=== PATIENT | male | born 1990 | race American Indian/Alaskan Native ===

== ENCOUNTER 2017-06-24 21:38 | Emergency (ER) | payer MEDICAID ==
[2017-06-24 21:43] VITALS: BP 160/91
[2017-06-24 22:11] LABS: Bilirubin,Urine NEG (Negative); Blood,Urine SM (Negative); Ketones,Urine TR mg/dL (Negative); Leukocyte Esterase,Urine SM (Negative); Mucus,Urine FEW /HPF; Nitrite,Urine NEG (Negative); Protein,Urine <15 mg/dL mg/dL (Negative); Urobilinogen,Urine < 2.0 mg/dL (<2.0)
[2017-06-24] MEDS ORDERED: XYLOCAINE 1% MPF 5 mL INFILTRATI ONE (22:15)
[2017-06-24] MEDS ORDERED: ZITHROMAX PO ONE (22:15)
[2017-06-24] MEDS ORDERED: ROCEPHIN IM ONE (22:15)
--- NOTE | 2017-06-24 22:20 | Emergency Department Report ---
ED Male HPI - General Chief complaint: Urogenital-Male Stated complaint: PAIN WHEN URINATING Time Seen by Provider: 06/24/17 22:10 Source: patient Mode of arrival: Ambulatory Limitations: No Limitations - History of Present Illness Initial comments: dysuria x 2 days, no penile discharge no rash no lesion no open sores last contact 2 days Onset/Timin -: days(s) Location: penis Radiation: none Severity: moderate Severity scale (0 -10): 4 Quality: burning Consistency: intermittent Improves with: none Worsens with: urination new sexual partner (std exposure partner pos for Chlamydia ) denies: discharge, swelling, mass, rash, urinary retention, blood in urine, dysuria, fever, nausea/vomiting - Related Data Previous Rx's Medication Instructions Recorded Last Taken Type Doxycycline [Vibramycin CAP] 100 mg PO Q12HR #20 capsule 06/24/17 Unknown Rx Allergies Allergy/AdvReac Type Severity Reaction Status Date / Time No Known Allergies Allergy Unverified 06/24/17 21:43 ED Review of Systems ROS: Stated complaint: PAIN WHEN URINATING Other details as noted in HPI Constitutional: denies: chills, fever Eyes: denies: eye pain, eye discharge, vision change ENT: denies: ear pain, throat pain Respiratory: denies: cough, shortness of breath, wheezing Cardiovascular: denies: chest pain, palpitations Endocrine: no symptoms reported Gastrointestinal: denies: abdominal pain, nausea, diarrhea Genitourinary: urgency, dysuria. denies: hematuria, discharge, testicular pain , testicular mass Musculoskeletal: denies: back pain, joint swelling, arthralgia Skin: denies: rash, lesions Neurological: denies: headache, weakness, paresthesias Psychiatric: denies: anxiety, depression Hematological/Lymphatic: denies: easy bleeding, easy bruising ED Past Medical Hx - Past Medical History Previous Medical History?: No - Surgical History Past Surgical History?: No - Social History Smoking Status: Never Smoker Substance Use Type: None - Medications Home Medications: Home Medications Medication Instructions Recorded Confirmed Last Taken Type Doxycycline [Vibramycin CAP] 100 mg PO Q12HR #20 capsule 06/24/17 Unknown Rx ED Physical Exam - General Limitations: No Limitations General appearance: alert, in no apparent distress - Head Head exam: Present: atraumatic, normocephalic - Eye Eye exam: Present: normal appearance - ENT ENT exam: Present: mucous membranes moist - Neck Neck exam: Present: normal inspection - Respiratory Respiratory exam: Present: normal lung sounds bilaterally. Absent: respiratory distress - Cardiovascular Cardiovascular Exam: Present: regular rate, normal rhythm. Absent: systolic murmur, diastolic murmur, rubs, gallop - GI/Abdominal GI/Abdominal exam: Present: soft, normal bowel sounds - Rectal Rectal exam: Present: deferred - exam: Present: normal inspection, circumcision. Absent: testicular tenderness, urethral discharge, scrotal swelling, vertical testicular lie External exam: Present: normal external exam. Absent: erythema, swelling, lesions, lacerations, ecchymosis, bleeding - Extremities Exam Extremities exam: Present: normal inspection - Back Exam Back exam: Present: normal inspection - Neurological Exam Neurological exam: Present: alert, oriented X3 - Psychiatric Psychiatric exam: Present: normal affect, normal mood - Skin Skin exam: Present: warm, dry, intact, normal color. Absent: rash ED Course Vital Signs 06/24/17 21:40 Temperature 99.2 F Pulse Rate 81 Blood Pressure 160/91 O2 Sat by Pulse 99 Oximetry ED Medical Decision Making - Medical Decision Making pt presents for std exposure as partner reported pos for chlamyid a , ua noted for wbc, plan: treat for std , rocephin, azithromycin dc with doxycycline pt will follow up with health department for HIV screening and follow up pt vebalized agreement and understanding with discharge plan. Critical care attestation.: If time is entered above; I have spent that time in minutes in the direct care of this critically ill patient, excluding procedure time. ED Disposition Clinical Impression: STD (sexually transmitted disease) Disposition: DC- TO HOME OR SELFCARE Is pt being admited?: No Does the pt Need Aspirin: No Condition: Good Instructions: Sexually Transmitted Diseases (ED) Prescriptions: Doxycycline [Vibramycin CAP] 100 mg PO Q12HR #20 capsule Forms: Work/School Release Form(ED) Time of Disposition: 22:24
== END 2017-06-24 22:30 | disposition home or self-care (01) ==
LOC: ED 21:38
DX: A64 Unspecified sexually transmitted disease (principal)
CPT/HCPCS: 81001; 96372; 99283; J0696